=== PATIENT | female | born 1975 | race American Indian/Alaskan Native ===

== ENCOUNTER 2017-01-17 13:50 | Emergency (ER) | payer MEDICAID ==
[2017-01-17 14:04] VITALS: BP 172/115
[2017-01-17 14:35] LABS: Basophils % (Auto) 1.3 % (0.0-1.8); Eosinophils % (Auto) 0.7 % (0.0-4.3); Hematocrit 37.9 % (30.3-42.9); Mean Corpuscular HGB Conc 32 % (30-34); Mean Corpuscular Volume 71 fl (79-97); Platelet Count 493 K/mm3 (140-440); Red Blood Count 5.35 M/mm3 (3.65-5.03); Red Cell Distribution Width 16.1 % (13.2-15.2); White Blood Count 15.7 K/mm3 (4.5-11.0)
[2017-01-17 14:45] LABS: Alanine Aminotransferase 23 units/L (7-56); Albumin 3.9 g/dL (3.9-5); Albumin/Globulin Ratio 1.1 %; Alkaline Phosphatase 72 units/L (35-129); Anion Gap 20 mmol/L; BUN/Creatinine Ratio 13.33; Blood Urea Nitrogen 8 mg/dL (7-17); Calcium 9.6 mg/dL (8.4-10.2); Carbon Dioxide 25 mmol/L (22-30); Glucose 262 mg/dL (65-100); Lipase 14 units/L (13-60); Potassium 3.8 mmol/L (3.6-5.0); Sodium 130 mmol/L (137-145); Total Protein 7.5 g/dL (6.3-8.2)
[2017-01-17 14:46] LABS: Mean Corpuscular Hemoglobin 22 pg (28-32)
== END 2017-01-17 18:25 | disposition left against medical advice (07) ==
LOC: ED 13:50
DX: R10.9 Unspecified abdominal pain (principal); R11.2 Nausea with vomiting, unspecified; Z53.21 Procedure and treatment not carried out due to patient leaving prior to being seen by health care provider
CPT/HCPCS: 36415; 80053; 82962; 83690; 85025